=== PATIENT | male | born 1950 | race Caucasian/White ===

== ENCOUNTER 2020-05-05 08:51 | Emergency (ER) | payer OTHER ==
[2020-05-05] MEDS ORDERED: LIDOCAINE 1% MPF 30 ML VIAL ONE (09:15)
[2020-05-05] MEDS ORDERED: HYDROCODONE/APAP 10/325 TAB ONE (09:15)
[2020-05-05] MEDS ORDERED: ONDANSETRON 4 MG (ODT) TAB ONE (09:15)
[2020-05-05] MEDS ORDERED: TETANUS & DIPHTHERIA TOX,ADULT 0.5 ML VIAL ONE (09:26)
--- NOTE | 2020-05-05 09:51 | RAD REPORT ---
EXAM DESCRIPTION: RAD - Tib Fib Right - 05/05/2020 9:35 am CLINICAL HISTORY: injury Laceration, pain COMPARISON: No comparisons FINDINGS: Laceration is present involving the medial aspect of the leg. No fracture or radiopaque fo reign body.
--- NOTE | 2020-05-05 11:55 | ER ---
Nurse's Notes [facility] Name: Manish Hilario Age: 69 yrs Sex: Male : 1950 Arrival Date: 05/05/2020 Time: 08:56 Bed 4 Private MD: Rock Mills T Diagnosis: Laceration of the leg Presentation: 05/05 09:10 Chief complaint: Patient states: Cut back of R leg on a piece of sheet metal in garage, ph bleeding contolled. Coronavirus screen: Patient denies a cough. Patient denies shortness of breath or difficulty breathing. Patient denies measured and/or subjective temperature greater than 100.4F prior to today's visit. Patient denies travel on a cruise ship or to a country the [facility] currently lists as an affected area. Patient denies contact with known and/or suspected case of COVID-19. Ebola Screen: No symptoms or risks identified at this time. Complicating Factors: There are no complicating factors for this patient. Initial Sepsis Screen: Does the patient meet any 2 criteria? No. Patient's initial sepsis screen is negative. Does the patient have a suspected source of infection? No. Patient's initial sepsis screen is negative. Risk Assessment: Do you want to hurt yourself or someone else? Patient reports no desire to harm self or others. Onset of symptoms was May 05, 2020. 09:10 Method Of Arrival: Wheelchair ph 09:10 Acuity: ALEJANDRO 4 ph Historical: - Allergies: 09:12 No Known Allergies; ph - PMHx: 09:12 Hypertension; ph - Immunization history:: Last tetanus immunization: < 10 years ago. - Social history:: Smoking status: Patient denies any tobacco usage or history of. Screenin:12 Abuse screen: Denies threats or abuse. Denies injuries from another. Nutritional ph screening: No deficits noted. Nutritional screening: No deficits noted. Tuberculosis screening: No symptoms or risk factors identified. Fall Risk None identified. Assessment: 10:00 General: Appears in no apparent distress. comfortable, Behavior is calm, cooperative, ph appropriate for age. Pain: Complains of pain in right calf. Neuro: Level of Consciousness is awake, alert, obeys commands, Oriented to person, place, time, situation. Cardiovascular: Capillary refill < 3 seconds in bilateral fingers Patient's skin is warm and dry. Respiratory: Airway is patent Respiratory effort is even, unlabored. Derm: Skin is healthy with good turgor, Skin is pink, warm \T\ dry. Musculoskeletal: Circulation, motion, and sensation intact. Range of motion: intact in all extremities. Injury Description: Laceration sustained to right calf is 7.6 to 20 cm long, not bleeding. Vital Signs: 09:10 BP 155 / 86; Pulse 77; Resp 18; Temp 97.9; Pulse Ox 96% on R/A; Weight 99.79 kg; Height ph 5 ft. 11 in. (180.34 cm); 10:11 BP 133 / 88; Pulse 68; Resp 16; Pulse Ox 96% on R/A; ph 12:34 BP 128 / 78; Pulse 69; Resp 18; Temp 97.9; Pulse Ox 96% on R/A; ph 09:10 Body Mass Index 30.68 (99.79 kg, 180.34 cm) ph ED Course: 08:56 Patient arrived in ED. mr 08:56 Rock Mills MD is Private Physician. mr 08:59 Bob Medina PA is PHCP. jmm 08:59 Magdaleno Mayes MD is Attending Physician. jmm 09:05 Ramona Moe, ENOCH is Primary Nurse. ph 09:11 Triage completed. ph 09:12 Patient has correct armband on for positive identification. Bed in low position. Call ph light in reach. Side rails up X 1. Pulse ox on. NIBP on. Door closed. Noise minimized. Warm blanket given. 09:12 Arm band placed on Patient placed in an exam room. ph 09:35 Tib Fib Right XRAY In Process Unspecified. EDMS 10:45 Assist provider with laceration repair on right calf that was between 12.6 to 20 cm ph using sutures. Set up tray. Performed by Bob HUERTA Dressed with Kerlix, Neosporin, Patient tolerated well. Patient did not have IV access during this emergency room visit. 11:54 Rock Mills MD is Referral Physician. jmm 12:15 Dressings: Kerlix X 1; right leg and right calf non-adherent dressing x 1 right leg and dh3 right calf and applied triple antibiotic ointment. 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 Exp: ph 01/14/2022. Lot #: [id number]. } Route: IM; Site: right deltoid; 10:00 Follow up: Response: No adverse reaction ph 09:59 Drug: Marcaine (0.5 %) 10 ml Volume: 10 ml; Route: Infiltration; ph 10:00 Follow up: Response: No adverse reaction ph 09:59 Drug: Lidocaine (1 %) 20 ml Volume: 20 ml; Route: Infiltration; ph 10:00 Follow up: Response: No adverse reaction ph Outcome: 11:55 Discharge ordered by . shakira 12:33 Discharged to home via wheelchair. ph 12:33 Condition: good 12:33 Discharge instructions given to patient, Instructed on discharge instructions, follow up and referral plans. medication usage, wound care, Demonstrated understanding of instructions, follow-up care, medications, wound care, Prescriptions given X 1. 12:34 Patient left the ED. ph Signatures: Dispatcher [employer] EDMS Bob Medina PA PA jmm Rivera, Mary mr Hall, Patricia, RN RN Vandana Garcia dh3 Corrections: (The following items were deleted from the chart) 12:23 12:15 Dressings: Kerlix X 1; right leg and right calf non-adherent dressing x 1 right dh3 leg and right calf and applied triple antibiotic dh3
--- NOTE | 2020-05-05 11:55 | EDPHYS ---
Physician Documentation [facility] Name: Manish Hilario Age: 69 yrs Sex: Male : 1950 Arrival Date: 05/05/2020 Time: 08:56 Bed 4 Private MD: Rock Mills T ED Physician Magdaleno Mayes HPI: 05/05 09:23 This 69 yrs old Male presents to ER via Wheelchair with complaints of jmm Laceration To Leg. 09:23 The patient has a laceration related to: occurred at home. Onset: The symptoms/episode jmm began/occurred acutely, just prior to arrival. Associated signs and symptoms: The patient has no apparent associated signs or symptoms. This is a 69 year old male with a history of htn that presents to the ED with complaints of cutting his right lower leg. Patient states he walked over an object in his garage and tripped into sheet metal. . Historical: - Allergies: 09:12 No Known Allergies; ph - PMHx: 09:12 Hypertension; ph - Immunization history:: Last tetanus immunization: < 10 years ago. - Social history:: Smoking status: Patient denies any tobacco usage or history of. ROS: 09:23 Constitutional: Negative for fever, chills, and weight loss, Cardiovascular: Negative jmm for chest pain, palpitations, and edema, Respiratory: Negative for shortness of breath, cough, wheezing, and pleuritic chest pain. 09:23 Skin: Positive for laceration(s). 09:23 All other systems are negative. Exam: 09:23 Constitutional: This is a well developed, well nourished patient who is awake, alert, jmm and in no acute distress. Head/Face: atraumatic. Eyes: EOMI, no conjunctival erythema appreciated ENT: Moist Mucus Membranes Neck: Trachea midline, Supple Chest/axilla: Normal chest wall appearance and motion. Cardiovascular: Regular rate and rhythm. No edema appreciated Respiratory: Normal respirations, no respiratory distress appreciated Abdomen/GI: Non distended, soft Back: Normal ROM Neuro: Awake and alert, normal gait Psych: Behavior is normal, Mood is normal, Patient is cooperative and pleasant Vital Signs: 09:10 BP 155 / 86; Pulse 77; Resp 18; Temp 97.9; Pulse Ox 96% on R/A; Weight 99.79 kg; Height ph 5 ft. 11 in. (180.34 cm); 10:11 BP 133 / 88; Pulse 68; Resp 16; Pulse Ox 96% on R/A; ph 12:34 BP 128 / 78; Pulse 69; Resp 18; Temp 97.9; Pulse Ox 96% on R/A; ph 09:10 Body Mass Index 30.68 (99.79 kg, 180.34 cm) ph Laceration: 11:50 Wound Repair of 12cm ( 4.7in ) subcutaneous laceration to right leg. Distal jmm neuro/vascular/tendon intact. Anesthesia: Local anesthetic administered with 20 mls of Lido/Marcaine. Wound prep: Extensive cleansing with betadine by ks, Copious irrigation. Skin closed with 5 4-0 Vicryl using simple sutures and sterile technique. Skin closed with 15 3-0 Vicryl using simple sutures and sterile technique. Patient tolerated well. MDM: 09:01 Patient medically screened. [facility] 11:52 Data reviewed: vital signs, nurses notes. Counseling: I had a detailed discussion with ilana the patient and/or guardian regarding: the historical points, exam findings, and any diagnostic results supporting the discharge/admit diagnosis, radiology results, the need for outpatient follow up, to return to the emergency department if symptoms worsen or persist or if there are any questions or concerns that arise at home. ED course: Patient given wound infection return precautions. patient understood and agrees with the plan of care. . 05/05 09:07 Order name: Tib Fib Right XRAY; Complete Time: 10:09 [facility] Administered Medications: 09:10 Drug: [place] 10 mg-325 mg 1 tabs Route: PO; ph 09:59 Follow up: Response: No adverse reaction; Pain is decreased; RASS: Alert and Calm (0) ph 09:10 Drug: Zofran (Ondansetron) 4 mg Route: PO; ph 10:00 Follow up: Response: No adverse reaction ph 09:23 Drug: Tetanus-Diphtheria Toxoid Adult 0.5 ml {Rn Immunology: [employer]. Exp: ph 01/14/2022. Lot #: [id number]. } Route: IM; Site: right deltoid; 10:00 Follow up: Response: No adverse reaction ph 09:59 Drug: Marcaine (0.5 %) 10 ml Volume: 10 ml; Route: Infiltration; ph 10:00 Follow up: Response: No adverse reaction ph 09:59 Drug: Lidocaine (1 %) 20 ml Volume: 20 ml; Route: Infiltration; ph 10:00 Follow up: Response: No adverse reaction ph Disposition: 12:46 Co-signature as Attending Physician, Magdaleno Mayes MD. rn Disposition: 05/05/20 11:55 Discharged to Home. Impression: Laceration of the leg. - Condition is Stable. - Discharge Instructions: Laceration Care, Adult. - Prescriptions for Bactrim DS 800- 160 mg Oral Tablet - take 1 tablet by ORAL route every 12 hours for 10 days; 20 tablet. - Medication Reconciliation Form, Thank You Letter, Antibiotic Education, Prescription Opioid Use form. - Follow up: Rock Mills MD; When: 7 - 10 days; Reason: Recheck today's complaints, Continuance of care, Re-evaluation by your physician. Signatures: Dispatcher [employer] EDMS Bob Medina PA PA [facility] Magdaleno Mayes MD MD rn Ramona Moe RN RN ph Corrections: (The following items were deleted from the chart) 12:34 11:55 05/05/2020 11:55 Discharged to Home. Impression: Laceration of the leg. Condition ph is Stable. Forms are Medication Reconciliation Form, Thank You Letter, Antibiotic Education, Prescription Opioid Use. Follow up: Rock Mills; When: 7 - 10 days; Reason: Recheck today's complaints, Continuance of care, Re-evaluation by your physician. shakira
[2020-05-05 12:42] VITALS: TEMP 97.9; O2SAT 96
[2020-05-05 12:52] VITALS: BP 128/78
== END 2020-05-05 12:34 | disposition home or self-care (01) ==
LOC: ER 08:51
PROC: 0JQN0ZZ Repair Right Lower Leg Subcutaneous Tissue and Fascia, Open Approach (ICD-10-PCS; principal; 2020-05-05)
DX: S81.812A Laceration without foreign body, left lower leg, initial encounter (principal); W01.0XXA Fall on same level from slipping, tripping and stumbling without subsequent striking against object, initial encounter; Y93.9 Activity, unspecified; Y92.015 Private garage of single-family (private) house as the place of occurrence of the external cause; Z23 Encounter for immunization
CPT/HCPCS: 90471; 90714; 99284